=== PATIENT | female | born 1950 | race American Indian/Alaskan Native ===

== ENCOUNTER 2019-04-13 06:17 | Observation (INO) | payer OTHER, MEDICARE ==
[2019-02-08 10:08] LABS: Hematocrit 39.9 % (30.3-42.9); Hemoglobin 13.3 gm/dl (10.1-14.3); Mean Corpuscular HGB Conc 33 % (30-34); Mean Corpuscular Volume 86 fl (79-97); Platelet Count 244 K/mm3 (140-440); Red Blood Count 4.63 M/mm3 (3.65-5.03); Red Cell Distribution Width 15.5 % (13.2-15.2)
--- NOTE | 2019-02-08 10:31 | Anesthesia Consultation ---
Anesthesia Consult and Med Hx Date of service: 02/08/19 - Airway Anesthetic Teeth Evaluation: Poor (few remiaing teeth; none loose) ROM Head & Neck: Adequate Mental/Hyoid Distance: Adequate Mallampati Class: Class III Intubation Access Assessment: Possibly Difficult - Pulmonary Exam CTA: Yes - Cardiac Exam Cardiac Exam: RRR - Pre-Operative Health Status ASA Pre-Surgery Classification: ASA3 Proposed Anesthetic Plan: General - Pulmonary Hx Smoking: No Hx Respiratory Symptoms: No - Cardiovascular System Hx Hypertension: Yes (noncompliant with medications) Hx Heart Attack/AMI: No Hx Angina: No Hx Percutaneous Transluminal Coronary Angioplasty (PTCA): No - Central Nervous System CVA: No Hx Psychiatric Problems: Yes (memory loss) - Gastrointestinal Hx Gastroesophageal Reflux Disease: No - Endocrine Hx Renal Disease: No Hx Liver Disease: No Hx Insulin Dependent Diabetes: No Hx Non-Insulin Dependent Diabetes: No Hx Thyroid Disease: No - Hematic Hx Anemia: No - Other Systems Hx Obesity: Yes (BMI 43.5) - Additional Comments Anesthesia Medical History Comments: Patient presented to pre-assessment with significantly elevated BP. Denies chest pain, SOB, headache, visual changes, dizziness. Patient's daughter reports that SBP checks at home are 130s-140s but that BP is always elevated at doctor's visits which she attributes to anxiety. Patient follows with PCP Dr. Granados and was recently started on amlodipine in preparation for surgery but the patient stopped after a few days due to adverse effects. Given concern for poorly controlled hypertension, patient and daughter advised to see PCP today for evaluation and medical clearance. They were advised that surgery may be cancelled if BP is significantly elevated in preop. Patient and daughter verbalized understand. Will attempt to obtain records from the PCP visit therafter.
[2019-02-08 11:24] LABS: Total Cells Counted 100
[2019-02-08 11:27] LABS: Platelet Estimate Consistent w Auto
[2019-04-11 12:11] LABS: Basophils % (Auto) 0.4 % (0.0-1.8); Eosinophils # (Auto) 0.1 K/mm3 (0.0-0.4); Hematocrit 41.2 % (30.3-42.9); Hemoglobin 13.2 gm/dl (10.1-14.3); Lymphocytes # (Auto) 1.7 K/mm3 (1.2-5.4); Lymphocytes % (Auto) 37.3 % (13.4-35.0); Mean Corpuscular HGB Conc 32 % (30-34); Mean Corpuscular Volume 88 fl (79-97); Monocytes # (Auto) 0.4 K/mm3 (0.0-0.8); Monocytes % (Auto) 8.8 % (0.0-7.3); Platelet Count 263 K/mm3 (140-440); Red Cell Distribution Width 15.2 % (13.2-15.2)
--- NOTE | 2019-04-13 07:04 | History and Physical Report ---
History of Present Illness Date of examination: 03/24/19 Date of admission: 04/13/2019 Chief complaint: post menopausal bleeding History of present illness: Pt is a 69 year old female who presented to the office some months ago with the complaint of 3 months of intermittent vaginal bleeding. Pt denies pain or cramping.She had a subsequent ct scan which showed a slightly enlarged uterus but normal ovaries. She also had an endometrial biopsy that showed simple and complex hyperplasia with atypia. She was initially scheduled for February but the surgery was cancelled pending cardiac clearance and blood sugar regulation. Past History Past Medical History: hypertension, hyperlipidemia Past Surgical History: No surgical history Social history: Family history: CAD, hypertension Medications and Allergies Allergies Allergy/AdvReac Type Severity Reaction Status Date / Time lisinopril Allergy Hair loss Verified 04/05/19 16:28 Home Medications Medication Instructions Recorded Confirmed Last Taken Type Multivitamin with Folic Acid [One 400 mcg PO DAILY 02/03/19 04/05/19 Unknown History Daily Multivitamin Tablet] amLODIPine [Norvasc] 5 mg PO DAILY 04/05/19 04/05/19 Unknown History Review of Systems All systems: negative - Constitutional fatigue - Breasts deferred - Respiratory dyspnea on exertion, snoring - Genitourinary Genitourinary: vaginal dryness, decreased libido Menstruation: postmenopausal Exam Vital Signs Temp Pulse Resp BP Pulse Ox 97.5 F L 70 20 153/84 98 04/11/19 11:45 04/11/19 11:45 04/11/19 11:45 04/11/19 11:45 04/11/19 11:45 - General physical appearance Positive: well developed, well nourished, no distress - Eyes Positive: PERRL, normal occular movement - Neck Positive: no masses, no bruits, trachea midline, no venous distension - Respiratory Positive: normal expansion, normal respiratory effort, clear to auscultation - Cardiovascular Rhythm: regular Heart Sounds: Present: S1 & S2. Absent: rub, click - Breasts Breasts: normal, no mass, no skin changes - Abdomen Abdomen: Present: soft, bowel sounds normal. Absent: tender, distended Hernia: none - Neurologic Neurologic: alert and oriented to time, place and person, motor strength and sensation are grossly intact Results - Labs 04/11/19 12:00 Assessment and Plan 69 year old female here with post menpausal bleeding secondary to complex hyperplasia. Pt consented to total hysterectomy with bso.
[2019-04-13] MEDS ORDERED: fentaNYL 100 MCG/2 ML INJ IV NR (07:20)
[2019-04-13] MEDS ORDERED: HYDROmorphone 1 MG/1 ML INJ IV PRN (07:20)
[2019-04-13] MEDS ORDERED: ONDANSETRON 4 MG/2 ML INJ IV PRN ×2 (07:20→12:45)
[2019-04-13] MEDS ORDERED: fentaNYL 100 MCG/2 ML INJ IV PRN (07:20)
[2019-04-13] MEDS ORDERED: ACETAMINOPHEN 500 MG TAB PO NR (07:21)
--- NOTE | 2019-04-13 07:22 | Anesthesia Day of Surgery ---
Anesthesia Day of Surgery - Day of Surgery Patient Examined: Yes Patient H&P Reviewed: Yes Patient is NPO: Yes
[2019-04-13] MEDS ORDERED: LIDOCAINE MPF (2%) 20 MG/1 ML VIAL 5 ML ONE (07:37)
[2019-04-13] MEDS ORDERED: ROCURONIUM 50 MG/5 ML INJ IV ONE (07:37)
[2019-04-13] MEDS ORDERED: PROPOFOL 200 MG/20 ML VIAL IV ONE (07:38)
[2019-04-13] MEDS ORDERED: fentaNYL 250 MCG/5 ML INJ ONE (07:38)
[2019-04-13] MEDS ORDERED: LIDOCAINE (1%) 10 MG/1 ML VIAL 20 ML MDV ONE (07:39)
[2019-04-13] MEDS ORDERED: BUPIVACAINE-EPINEPHRINE/PF 0.5%-1:200,000 (30 ML) VIAL INFILTRATI ONE (07:39)
[2019-04-13] MEDS ORDERED: BUPIVACAINE/PF (0.25%) 2.5 MG/ML 10 ML VIAL INFILTRATI ONE ×2 (07:54→09:19)
[2019-04-13] MEDS ORDERED: LACTATED RINGERS 1,000 ML IV SCH (08:00)
[2019-04-13] MEDS ORDERED: GABAPENTIN 300 MG CAP PO NR ×2 (08:00)
[2019-04-13] MEDS ORDERED: ceFAZolin/Water 2 GM/20 ML 2 GM/20 ML SYRINGE IV NR (08:00)
[2019-04-13] MEDS ORDERED: MIDAZOLAM 2 MG/2 ML INJ IV NR (08:00)
[2019-04-13] MEDS ORDERED: CELECOXIB 200 MG CAP PO NR ×2 (08:00)
[2019-04-13] MEDS ORDERED: ONDANSETRON 4 MG/2 ML INJ ONE (08:38)
[2019-04-13] MEDS ORDERED: PHENYLEPHRINE/NS 1,000 MCG/10 ML SYRINGE (OR USE) IV ONE (08:38)
[2019-04-13] MEDS ORDERED: NEOSTIGMINE 10MG/10 ML INJ MDV ONE (08:38)
[2019-04-13] MEDS ORDERED: dexAMETHasone 20 MG/5 ML VIAL ONE (08:38)
[2019-04-13] MEDS ORDERED: GLYCOPYRROLATE 0.4 MG/2 ML INJ ONE (08:38)
[2019-04-13] MEDS ORDERED: SODIUM CHLORIDE 0.9% IRR 1,500 ML BOTTLE IR ONE (09:19)
[2019-04-13] MEDS ORDERED: SODIUM CHLORIDE 0.9% IRRIG SOLN 2000 ML IR ONE (09:51)
[2019-04-13] MEDS ORDERED: HYDROmorphone 1 MG/1 ML INJ ONE (10:53)
--- NOTE | 2019-04-13 11:24 | Post Operative Note ---
Pre-op diagnosis: Complex hyperplasia with atypia Post-op diagnosis: same (with large ovarian mass) Findings: Normal sized uterus and left tube. markedly enlarged and irregular right ovary Procedure: Total laparoscopic hysterectomy with BSO Anesthesia: ANTONIO Surgeon: NAMITA GARCIA Estimated blood loss: 50-100ml Pathology: list (u withterus, tubes and both ovaries) Specimen disposition: to lab Condition: stable Disposition: PACU
--- NOTE | 2019-04-13 11:40 | Operative Report ---
Operative Report Operative Report: Preoperative diagnosis: Post menopausal bleeding secondary to complex hyperplasia with atypia Postoperative diagnosis: Same with large right ovarian mass Procedure:Total laparoscopic hysterectomy with BSO Surgeon: Ebony [employer] Superintendent: Anesthesia: General EBL: 100 mL IV fluids: 700 mL Urine output: 300 mL Findings: Normal sized uterus and left adnexa with an enlarged and irregular right ovarian mass, no evidence of peritoneal studding or other irregularity Specimens: Uterus, fallopian tubes, and ovaries Complications: None The patient was properly identified as herself. She was then taken to the OR with IV running and in place. She was given general anesthesia without diff iculty. She was placed in a dorsal lithotomy position. She was then prepped and draped in normal sterile fashion. Attention was turned to the patient's vagina. A Morrison catheter was inserted into her bladder. The speculum was then placed the patient's vagina. The cervix was visualized and grasped with tenaculum. The large Vesicare retractor was placed into the patient's uterus and the bulb inflated. The surgeon's gloves were changed and attention turned to the patient's abdomen. A small incision was made in the patient's umbilicus incision a 5 mm trocar was placed. The laparoscope confirmed intra-abdominal placement. The abdomen was insufflated with CO2 gas to approximately 25 mmHg. 2 additional incisions were made in the right and left lower quadrants. Through both of these incisions 5 mm trochars were placed. Attention was turned to the right adnexa. The right ovary had some mild adhesions to the anterior abdominal wall. These were taken down. Attention was then turned to the right pelvic sidewall. the IP ligament was identified. It wa then cauterized and transected. Following this the round ligament was cauterized and transected as well and the bladder flap was initiated on the right. The utero-ovarian artery was also cauterixzed and transected. Attention was then turned to the left sidewall. The IP, round and uteroovarian ligaments were all cauterized and transected. The bladder flap was completed as the left side was taken down to meet the right. The uterine arteries were skeletonized bilaterally and cauterized and transected. AT this point the colpotomy incision was initiated using the J hook. A circumferential incision was made around the cup until the uterus was completely free. Attention was then turned back to the vagina. a weighted speculum was placed in the vagina and the manipulator was moved the the point where the cervix could be seen. The cervix was grasped with a single tooth tenaculum and delivered in one piece through the vagina along with the ovary. The vaginal cuff was then closed in a running locked fashion with 2.0 vicryl. A second look was taken inside the abdomen with the laparosope. At this point the abdomen was deflated. All instruments were then removed from the abdomen. The incisions were then closed with 4-0 Monocryl. The incisions were also injected with quarter percent Marcaine. The patient tolerated the pr ocedure well she was then awakened and taken recovery in stable condition. Sponge needle and instrument counts were correct 2.
[2019-04-13] MEDS ORDERED: METOCLOPRAMIDE 10 MG/2 ML INJ IV PRN (12:45)
[2019-04-13] MEDS ORDERED: oxyCODONE /ACETAMINOPHEN 5-325MG TAB PO PRN (12:45)
[2019-04-13] MEDS ORDERED: MORPHINE 2 MG/1 ML INJ IV PRN (12:45)
[2019-04-13] MEDS ORDERED: D5W/LACTATED RINGERS 1,000 ML IV SCH (12:45)
[2019-04-13] MEDS: KETOROLAC 30 MG/1 ML INJ IV SCH ×2 (14:19→18:49)
--- NOTE | 2019-04-13 14:32 | Post Anesthesia Evaluation ---
- Post Anesthesia Evaluation Patient Participated: Yes Airway Patent: Yes Stable Respiratory Function: Yes Nausea/Vomiting: No Temp > 96.8F: Yes Pain Manageable: Yes Adequeate Hydration: Yes Anesthesia Complications: No Block Receding Appropriately: Yes Patient on Ventilator: No
[2019-04-13] MEDS ORDERED: DOCUSATE SODIUM 100 MG CAP PO SCH (22:00)
[2019-04-14] MEDS: KETOROLAC 30 MG/1 ML INJ IV SCH ×3 (00:38→16:57)
[2019-04-14 05:13] LABS: Hematocrit 34.9 % (30.3-42.9); Hemoglobin 11.4 gm/dl (10.1-14.3)
--- NOTE | 2019-04-14 08:54 | Progress Note ---
Assessment and Plan POD1 s/p tlh with bso. Doing well. Pt states she is ready to go home today. Subjective - Subjective Date of service: 04/14/19 Principal diagnosis: Endometrial hyperplasia Interval history: Pt is a 69 year old female who presented to the office some months ago with the complaint of 3 months of intermittent vaginal bleeding. Pt denies pain or cramping.She had a subsequent ct scan which showed a slightly enlarged uterus but normal ovaries. She also had an endometrial biopsy that showed simple and complex hyperplasia with atypia. She was initially scheduled for February but the surgery was cancelled pending cardiac clearance and blood sugar regulation. Patient reports: appetite normal, voiding normally, pain well controlled, flatus Objective - Vital Signs Latest vital signs: Vital Signs Temp Pulse Resp BP BP Pulse Ox 04/14/19 07:26 97.7 F 70 18 134/53 99 04/14/19 04:37 98.7 F 89 20 110/57 98 04/13/19 23:45 78 20 04/13/19 23:24 95.2 F L 20 134/65 04/13/19 19:46 98.2 F 94 H 20 137/83 93 04/13/19 16:47 97.6 F 86 20 140/69 99 04/13/19 12:25 97.2 F L 65 14 129/62 98 04/13/19 12:15 67 14 126/54 100 04/13/19 12:00 97.4 F L 61 13 123/58 100 04/13/19 11:45 61 15 123/61 100 04/13/19 11:30 64 13 117/60 96 04/13/19 11:25 70 14 127/65 96 04/13/19 11:20 81 12 134/59 96 04/13/19 11:15 96.6 F L 73 14 139/56 99 04/13/19 09:05 20 Intake and Output 04/13/19 04/14/19 04/14/19 22:59 06:59 14:59 Intake Total 240 480 Output Total 600 1800 Balance -360 -1320 Intake: Oral 240 480 Output: Urine 600 1800 Indwelling Catheter 600 1800 Other: Total, Intake Amount 240 240 Total, Output Amount 600 500 Voiding Method Indwelling Catheter - Exam Breasts: Present: deferred Cardiovascular: Present: Regular rate, Normal S1, Normal S2 Lungs: Present: Clear to auscultation, Normal air movement Abdomen: Present: normal appearance, soft, normal bowel sounds Extremities: Present: normal
--- NOTE | 2019-04-14 08:56 | Discharge Summary ---
Providers - Providers Date of Admission: 04/13/19 11:27 Date of discharge: 04/14/19 Attending physician: NAMITA GARCIA Primary care physician: SAMEER GOMEZ [facility] Reason for admission: other Procedure: other (hysterectomy) Incision: normal, dry, intact Discharge diagnosis: other (endometrial hyperplasia) Hospital course: Unremarkable Condition at discharge: Good Disposition: DC-01 TO HOME OR SELFCARE Plan - Discharge Medications Prescriptions: Docusate Sodium [Colace] 100 mg PO BID PRN #60 capsule PRN Reason: Constipation Ibuprofen [Motrin] 800 mg PO Q8HR PRN #40 tablet PRN Reason: Pain, Moderate (4-6) HYDROcodone/APAP 5-325 [[place] 5/325] 2 each PO Q6HR PRN #40 tablet PRN Reason: Pain - Provider Discharge Summary Activity: routine, no sex for 6 weeks, no heavy lifting 4 weeks, no strenuous exercise Diet: routine Instructions: routine Additional instructions: [] Smoking cessation referral if applicable(refer to patient education folder for contact #) [] Refer to [facility]'s [facility] Booklet Call your doctor immediately for: * Fever > 100.5 * Heavy vaginal bleeding ( >1 pad per hour) * Severe persistent headache * Shortness of breath * Reddened, hot, painful area to leg or breast * Drainage or odor from incision. * Keep incision clean and dry at all times and follow doctor's instructions regarding bathing/showering - Follow up plan Follow up: NAMITA GARCIA MD [Staff Physician] - 14 Days
[2019-04-14 16:16] VITALS: BP 140/78
== END 2019-04-14 18:30 | disposition home or self-care (01) ==
LOC: OR 06:17 → OB 11:27
PROVIDERS: ADMIT Obstetrics & Gynecology; ATTEND Obstetrics & Gynecology
DX: N95.0 Postmenopausal bleeding (principal); I10 Essential (primary) hypertension; E78.5 Hyperlipidemia, unspecified; N85.02 Endometrial intraepithelial neoplasia [EIN]
CPT/HCPCS: 36415; 58570; 64450; 82803; 85007; 85014; 85018; 85025; 86850; 86900; 86901; 88307; 88313; 88342; 96374; 96375; 96376; A4217; G0378; J0690; J1100; J1170; J1885; J2250; J2270; J2370; J2405; J2704; J2710; J3010; J7120; J7121; 88341